=== PATIENT | female | born 1965 | race Caucasian/White ===

== ENCOUNTER 2021-06-10 20:39 | Observation (INO) | payer OTHER ==
[~2021-06-10] VITALS: Ht 167.6 cm; Wt 89.0 kg
[2021-06-10 21:40] LABS: HEMOGLOBIN 17.1 gm/dl (12.3-15.3); RED BLOOD COUNT 5.35 M/UL (4.00-5.10); WHITE BLOOD COUNT 10.5 K/UL (4.5-11.0)
[2021-06-10 22:03] LABS: BUN/CREATININE RATIO 9 (0-10)
[2021-06-11] MEDS ORDERED: HYDROCHLOROTHIA25 MG PO (12:20)
[2021-06-11] MEDS ORDERED: PRINIVIL20 MG PO (12:21)
[2021-06-11] MEDS ORDERED: [UNRECOGNIZED DRUG - OTHER] TOP (12:22)
[2021-06-11] MEDS ORDERED: ESTRA TOP (12:22)
[2021-06-11] MEDS ORDERED: VITAMIN B-121000 MC3 PO (12:23)
[2021-06-11] MEDS ORDERED: VITAMIN D250 MCG PO (12:23)
[2021-06-12 04:08] LABS: HEMOGLOBIN 13.4 gm/dl (12.3-15.3); RED BLOOD COUNT 4.31 M/UL (4.00-5.10); WHITE BLOOD COUNT 6.1 K/UL (4.5-11.0)
== END 2021-06-12 12:25 | disposition home or self-care (01) ==
LOC: ER1 20:39 → UNDODEPER 06-11 01:45 → CDU 06-11 02:33 → PROG CARE 06-11 20:35
PROVIDERS: Emergency Medicine; Internal Medicine; Physician Assistant; ADMIT Internal Medicine
DX: R07.89 Other chest pain (principal); E86.0 Dehydration; N17.9 Acute kidney failure, unspecified; E87.1 Hypo-osmolality and hyponatremia; E87.6 Hypokalemia; I10 Essential (primary) hypertension; F90.9 Attention-deficit hyperactivity disorder, unspecified type; F17.200 Nicotine dependence, unspecified, uncomplicated; Z88.1 Allergy status to other antibiotic agents; Z79.899 Other long term (current) drug therapy
CPT/HCPCS: 36415; 70450; 71045; 80048; 80053; 80307; 81001; 82550; 82553; 83690; 83735; 83874; 83880; 84439; 84443; 84484; 85025; 85379; 85610; 85730; 93005; 99285; G0378; J3480